=== PATIENT | male | born 1980 | race Two or more races ===

== ENCOUNTER → 2024-08-18 | Outpatient (CLI) | payer BC, SELFPAY ==
[2024-08-18 08:55] LABS: Misc Send Out* See Sep Rpt
[2024-08-18 09:30] LABS: Basophils % (Auto) 1 % (0-2.5); Eosinophils # (Auto) 0.1 Thou/mm3 (0.0-0.5); Eosinophils % (Auto) 2 % (0-10); Hematocrit 41.7 % (41.0-53.0); Hemoglobin 14.2 g/dL (13.5-16.0); Immature Granulocytes % (Auto) 0 % (0-0); Immature Granulocytes Auto 0.01 Thou/mm3 (0.00-0.00); Lymphocytes # (Auto) 1.5 Thou/mm3 (1.0-4.8); Lymphocytes % (Auto) 40 % (10-50); Mean Corpuscular HGB Conc 34.1 g/dl (31.0-37.0); Mean Corpuscular Hemoglobin 28.9 pg (25.0-35.0); Mean Corpuscular Volume 85 fL (80-100); Monocytes # (Auto) 0.3 Thou/mm3 (0.0-0.8); Monocytes % (Auto) 7 % (0-12); Neutrophils # (Auto) 1.9 Thou/mm3 (1.8-7.7); Neutrophils % (Auto) 51 % (37-80); Nucleated Red Blood Cell % 0 /100 WBC (0); Platelet Count 240 Thou/mm3 (140-440); RDW Standard Deviation 38.5 fL (35.1-43.9); Red Blood Count 4.91 Miln/mm3 (4.50-5.90); White Blood Count 3.8 Thou/mm3 (3.8-10.6)
[2024-08-18 09:37] LABS: Glucose Estimated Average 97 mg/dL (80-131)
[2024-08-18 09:40] LABS: PSA Medicare Annual Scrn 0.69 ng/mL (0-4.00); T4 (Thyroxine) 6.5 mcg/dL (4.5-10.9)
[2024-08-18 09:41] LABS: Vitamin D 25 Hydroxy Total 13.8 ng/mL (7.3-40.2)
[2024-08-18 09:42] LABS: Alanine Aminotransferase 21 U/L (10-49); Albumin, Serum 4.3 gm/dL (3.5-5.0); Alkaline Phosphatase 49 U/L (46-116); Anion Gap 5 (7-16); Aspartate Amino Transferase 16 U/L (0-34); BUN/Creatinine Ratio 19 Ratio (12-20); Bilirubin,Total 1.3 mg/dL (0.3-1.2); Blood Urea Nitrogen 15 mg/dL (9-23); Calcium 9.5 mg/dL (8.3-10.6); Calcium (Corrected) 9.5 mg/dL (8.5-10.1); Carbon Dioxide 28.9 mMol/L (20.0-31.0); Cardiac Risk Estimate 2.4 RATIO (4.0-6.7); Chloride 106 mMol/L (98-107); Cholesterol 180 mg/dL (132-200); Creatinine (Component) 0.8 mg/dL (0.6-1.3); Globulin 2.1 gm/dL (2.3-3.5); Glucose 98 mg/dL (74-106); HDL Cholesterol 76 mg/dL (40-60); LDL Cholesterol,Calculated 86 mg/dL (0-130); Osmolality,Calculated 280 (275-295); Potassium 4.7 mMol/L (3.4-5.1); Sodium 140 mMol/L (136-145); Thyroid Stimulating Hormone 0.86 uIU/mL (0.55-4.78); Total Protein 6.4 gm/dL (5.7-8.2); Triglycerides 88 mg/dL (30-150); eGFR > 60 See Note
[2024-08-24 06:23] LABS: Testosterone, Free,Dialysis 163.6 pg/mL (35.0-155.0); Testosterone, Total, Dialysis 840 ng/dL (250-1100)
== END | disposition home or self-care (01) ==
PROVIDERS: PCP Family Medicine; Referring Provider Nurse Practitioner Family; Visit Provider Nurse Practitioner Family
DX: R79.9 Abnormal finding of blood chemistry, unspecified (principal); E29.1 Testicular hypofunction; Z86.39 Personal history of other endocrine, nutritional and metabolic disease; Z82.49 Family history of ischemic heart disease and other diseases of the circulatory system; Z12.5 Encounter for screening for malignant neoplasm of prostate; R53.83 Other fatigue
CPT/HCPCS: 36415; 80053; 80061; 82306; 83036; 83789; 84153; 84402; 84403; 84436; 84443; 85025; G0103

== ENCOUNTER → 2024-09-01 | Outpatient (CLI) | payer BC, SELFPAY ==
--- NOTE | 2024-09-01 15:00 | XR_ITS ---
Examination: Abdomen sonogram, complete Date and time of exam: September 01, 2024 at 1453 hrs. Indications: Upper abdominal pain beginning 2 years ago. Technique: Multiple real-time grayscale transabdominal sonographic images of the abdomen have been obtained. Findings: Dense shadowing at the gallbladder suspicious for impacted stones Gallbladder wall 0.3 cm Common bile duct 0.6 cm Pancreatic head 2.0 cm Aorta not enlarged Liver 15.1 cm smooth contour fatty infiltration Normal hepatopedal portal venous flow Patent IVC Right kidney 9.9 x 4.1 x 5.2 cm cortex 1.2 cm Left kidney 11.0 x 5.2 x 5.1 cm cortex 1.6 cm No hydronephrosis Spleen 8.8 cm Impression: Recommend repeating the gallbladder portion of the study with fasting Mild enlargement, bile duct 0.6 cm, if biliary colic is a clinical consideration, suggest MRCP follow-up
== END | disposition home or self-care (01) ==
PROVIDERS: PCP Nurse Practitioner Family; Referring Provider Nurse Practitioner Family; Visit Provider Nurse Practitioner Family
DX: K83.8 Other specified diseases of biliary tract (principal)
CPT/HCPCS: 76700

== ENCOUNTER → 2024-09-26 | Outpatient (CLI) | payer BC, SELFPAY ==
[2024-09-26 12:08] LABS: Amylase 57 U/L (30-118); Lipase 35 U/L (12-53)
== END | disposition home or self-care (01) ==
PROVIDERS: PCP Nurse Practitioner Family; Referring Provider Nurse Practitioner Family; Visit Provider Nurse Practitioner Family
DX: R10.12 Left upper quadrant pain (principal)
CPT/HCPCS: 36415; 82150; 83690

== ENCOUNTER → 2024-10-03 | Outpatient (CLI) | payer BC, SELFPAY ==
--- NOTE | 2024-10-03 15:39 | XR_ITS ---
MRI abdomen, without contrast. MRCP Date and time of exam: Film at 0333 dictated v acutely soapy injury Technique: Multiple axial and coronal images of the abdomen have been obtained with the Siemens 1.5T MRI scanner. Images obtained included T1 weighted transverse images, T2-weighted transverse images, T2-weighted transverse images fat-suppressed, T2 weighted haste fat suppressed transverse images, T1 weighted images, in and out of phase images, T2-weighted coronal images, breath hold, T2 weighted haze coronal images as well as T2 weighted coronal thick slab images, MRCP. Findings: October 03, 2024 1622 hours INDICATIONS: Left-sided abdominal pain beginning 2 years ago, diagnosis cholangitis FINDINGS: Hepatomegaly 17 cm Multiple gallstones Gallbladder wall is not thickened Common hepatic duct 6 mm common bile duct 4 mm No comminuted bilateral common bile duct stones Spleen is not enlarged No pancreatic mass No hydronephrosis No ascites Impression: Cholelithiasis, negative for cholecystitis No common hepatic or common bile duct stones
== END | disposition home or self-care (01) ==
PROVIDERS: PCP Nurse Practitioner Family; Referring Provider Nurse Practitioner Family; Visit Provider Nurse Practitioner Family
DX: K80.20 Calculus of gallbladder without cholecystitis without obstruction (principal)
CPT/HCPCS: S8037; 74181

== ENCOUNTER → 2024-10-06 | Outpatient (CLI) | payer BC, SELFPAY ==
--- NOTE | 2024-10-06 15:45 | XR_ITS ---
Examination: Abdomen sonogram, Limited Date and time of exam: October 06, 2024 1538 hours INDICATIONS: Left upper abdominal pain beginning 2 years ago Technique: Real-time campos scale transabdominal sonographic images of the upper abdomen obtained. Findings: Multiple gallstones with contracted gallbladder Gallbladder wall 0.2 cm no edema Common bile duct 0.5 cm Pancreatic head 2.1 cm Liver 15.1 cm smooth contour fatty infiltration Normal hepatopedal portal venous oh Patent IVC IMPRESSION: Cholelithiasis, negative for cholecystitis
== END | disposition home or self-care (01) ==
PROVIDERS: PCP Nurse Practitioner Family; Referring Provider Nurse Practitioner Family; Visit Provider Nurse Practitioner Family
DX: K80.20 Calculus of gallbladder without cholecystitis without obstruction (principal)
CPT/HCPCS: 76705

== ENCOUNTER 2024-12-22 06:10 | Day surgery (SDC) | payer BC, SELFPAY ==
[2024-12-21 12:00] VITALS: BMI 21.2
[2024-12-21 13:48] LABS: Basophils % (Auto) 1 % (0-2.5); Eosinophils # (Auto) 0.1 Thou/mm3 (0.0-0.5); Eosinophils % (Auto) 2 % (0-10); Hematocrit 39.8 % (41.0-53.0); Hemoglobin 14.1 g/dL (13.5-16.0); Immature Granulocytes % (Auto) 0 % (0-0); Immature Granulocytes Auto 0.01 Thou/mm3 (0.00-0.00); Lymphocytes # (Auto) 1.3 Thou/mm3 (1.0-4.8); Lymphocytes % (Auto) 31 % (10-50); Mean Corpuscular HGB Conc 35.4 g/dl (31.0-37.0); Mean Corpuscular Hemoglobin 29.4 pg (25.0-35.0); Mean Corpuscular Volume 83 fL (80-100); Monocytes # (Auto) 0.5 Thou/mm3 (0.0-0.8); Monocytes % (Auto) 11 % (0-12); Neutrophils # (Auto) 2.2 Thou/mm3 (1.8-7.7); Neutrophils % (Auto) 55 % (37-80); Nucleated Red Blood Cell % 0 /100 WBC (0); Platelet Count 201 Thou/mm3 (140-440); RDW Standard Deviation 38.1 fL (35.1-43.9)
[2024-12-21 14:01] LABS: Prothrombin Time 10.9 Seconds (9.0-12.2)
[2024-12-21 14:06] LABS: Alanine Aminotransferase 22 U/L (10-49); Albumin, Serum 4.3 gm/dL (3.5-5.0); Albumin/Globulin Ratio 2.2 (1.2-2.2); Alkaline Phosphatase 57 U/L (46-116); Anion Gap 4 (7-16); Aspartate Amino Transferase 18 U/L (0-34); BUN/Creatinine Ratio 14 Ratio (12-20); Bilirubin,Total 1.1 mg/dL (0.3-1.2); Blood Urea Nitrogen 14 mg/dL (9-23); Calcium 8.8 mg/dL (8.3-10.6); Calcium (Corrected) 8.8 mg/dL (8.5-10.1); Carbon Dioxide 28.1 mMol/L (20.0-31.0); Chloride 106 mMol/L (98-107); Estimated Creatinine Clearance 87.6 mL/min (>60); Glucose 98 mg/dL (74-106); Osmolality,Calculated 276 (275-295); Potassium 3.9 mMol/L (3.4-5.1); Sodium 138 mMol/L (136-145); Total Protein 6.3 gm/dL (5.7-8.2); eGFR > 60 See Note
[2024-12-22] VITALS (8 sets, daily range): BP systolic 117–138; BP diastolic 72–92; PULSE 51–74; RESP 13–20; TEMP 36.4–36.7; O2SAT 95–99; BMI 20.3
[2024-12-22] MEDS: RINGERS LACTATED 1000 ML 1,000 ML 20 ML IV (07:31)
--- NOTE | 2024-12-22 09:17 | ESOP_ITS ---
Date of Procedure 12/22/24 Pre Op Diagnosis Symptomatic cholelithiasis Post Op Diagnosis Cholelithiasis with cholecystitis Procedure Laparoscopic cholecystectomy Findings Moderately distended gallbladder with multiple large gallstones and chronic cholecystitis Procedure Description Patient was brought into the operating room in supine position. After administration of general endotracheal anesthesia abdomen was prepped and draped in standard surgical manner. A Veress needle was inserted through the umbilicus and pneumoperitoneum was obtained up to 15 mmHg. The Veress needle was then removed, a 5 mm infraumbilical incision was made and the 5mm trocar was inserted. Laparoscopic camera was placed. Under direct visualization a lap aroscopic camera a 10 mm trocar was placed in subxiphoid and two 5 mm trocars placed in right upper quadrant. The gallbladder was identified and was noted to be moderately distended with multiple large gallstones and chronic cholecystitis. It was retracted cephalad and laterally. Dissection started near the infundibulum of gallbladder where cystic duct and gallbladder junction clearly identified. The cystic duct was circumferentially dissected off the peritoneum and surrounding inflammatory tissue. The critical view of safety was clearly demonstrated. Cystic duct was then divided between 2 endoclips proximally and one distally. The cystic artery was similarly dissected and divided. The gallbladder was then from the liver bed using electrocautery. The gallbladder was then placed inside an Endo Catch and removed from the abdomen utilizing subxiphoid trocar site. The area was copiously and thoroughly washed and irrigated, all the fluid was suctioned and the suction fluid returned clear. Hemostasis achieved using electrocautery. Endoclips noted be in place and intact without any bleeding or any leakage. Hemostasis was adequate and satisfactory. The subxiphoid trocar sites fascial defect was closed with 0 Vicryl. Instruments and trocars removed, pneumoperitoneum was evacuated and the incisions closed with 4-0 Monocryl in subcuticular fashion. Instrument needle and sponge counts were all reported to be correct X2. Patient tolerated the procedure well, was extubated, breathing spontaneously and without difficulty and was transferred to postanesthesia care in stable condition. Anesthesia GETA and local Pathology / specimen Other (Gallbladder and contents) Estimated Blood Loss 10 Condition Stable Disposition PACU Surgeon Tahir Aguero MD Surgical Staff Operation Date: 12/22/24 08:30 Case Staff Anesthesiologist: Marbin Flanagan RN First Assistant: Sharyn Negron
--- NOTE | 2024-12-22 09:25 | SUR.PHASEI ---
0925: Pt. AAOx4, vitals stable, breathing unlabored, no complaint of pain or nauseas, x4 dermabond sites to ABD CDI, no active bleed noted, report received from MD Flanagan and Elizabeth AVILA.
[2024-12-22] MEDS: ACETAMINOPHEN IVPB 1,000 MG/100 ML VIAL 250 MG IV (09:36)
[2024-12-22] MEDS: fentaNYL CIT INJ 50 mCg/ML AMP 2ML 25 MCG IVP (09:42)
[2024-12-22] MEDS: HYDROcodone/APAP 5/325 TABLET 1 TAB PO (10:27)
--- NOTE | 2024-12-22 10:35 | SUR.PHASEII ---
1035: Pt. AAOx4, vitals stable, breathing unlabored, no complaint of pain or nausea, x4 dressing to ABD CDI, no active bleed noted, pt. tolerated sips of water well, pt. ambulated to wheelchair with steady gait and no assist, no complications. Gave discharge instructions to the pt. and his ride, both verbalized understanding and had no further questions. Pt. left with all personal belongings.
== END 2024-12-22 10:35 | disposition home or self-care (01) ==
PROVIDERS: PCP Nurse Practitioner Family; Referring Provider Surgery; Visit Provider Surgery
PROC: 0FT44ZZ Resection of Gallbladder, Percutaneous Endoscopic Approach (ICD-10-PCS; CPT 47562; principal; 2024-12-22 08:30)
DX: K80.10 Calculus of gallbladder with chronic cholecystitis without obstruction (principal)
CPT/HCPCS: 47562; 36415; 80053; 85025; 85610; A4217; A4649; J0131; J0694; J2250; J2704; J3010; J3490; J7120; A9270